=== PATIENT | male | born 1995 | race Two or more races ===

== ENCOUNTER 2019-09-16 20:05 | Emergency (ER) | payer BC, OTHER ==
[~2019-09-16] VITALS: Ht 165.1 cm; Wt 65.8 kg
[2019-09-16 20:40] VITALS: BP 148/75
[2019-09-16] MEDS ORDERED: FLUORESCEIN SOD 1 MG TEST STRIP LEFTEYE ONE (23:45)
[2019-09-16] MEDS ORDERED: TETRACAINE HCL 0.5% OPTH(EYE) SOLN 4ML LEFTEYE ONE (23:45)
== END 2019-09-17 01:21 | disposition home or self-care (01) ==
LOC: ER 20:09
DX: S05.02XA Injury of conjunctiva and corneal abrasion without foreign body, left eye, initial encounter (principal); W45.8XXA Other foreign body or object entering through skin, initial encounter; Y93.89 Activity, other specified; Y92.89 Other specified places as the place of occurrence of the external cause; Y99.8 Other external cause status